=== PATIENT | male | born 1975 | race Caucasian/White ===

== ENCOUNTER 2022-09-03 20:15 | Emergency (ER) | payer BC ==
[~2022-09-03] VITALS: Ht 182.9 cm; Wt 85.7 kg
[~2022-09-03 20:15] MED LIST: ALBU90OI INH; CRUTCH USE; DOXY100 PO; HYDACE5 PO
[2022-09-03 22:30] VITALS: BP 132/95
== END 2022-09-03 22:40 | disposition home or self-care (01) ==
LOC: ER 20:15
DX: R00.2 Palpitations (principal); Z87.891 Personal history of nicotine dependence
CPT/HCPCS: 93005; 93010; 99284-25

== ENCOUNTER 2024-02-05 10:47 | Observation (INO) | payer BC ==
[~2024-02-05] VITALS: Ht 182.9 cm; Wt 84.5 kg
[2024-02-05 12:00] LABS: BASOPHILS ABSOLUTE AUTO 0.06 K/mm3 (0.00-0.23); BASOPHILS PERCENT AUTO 1 % (0-2); EOSINOPHILS ABSOLUTE AUTO 0.12 K/mm3 (0.00-0.68); EOSINOPHILS PERCENT AUTO 1 % (0-6); Hematocrit 45.4 % (37.0-53.0); Hemoglobin 15.7 g/dL (13.5-17.5); IMMATURE GRAN ABSOLUTE AUTO 0.09 K/mm3 (0.00-0.10); IMMATURE GRAN PERCENT AUTO 1 % (0-1); LYMPHOCYTES PERCENT AUTO 13 % (21-46); MONOCYTES ABSOLUTE AUTO 1.49 K/mm3 (0.16-1.47); MONOCYTES PERCENT AUTO 15 % (4-13); Mean Corpuscular HGB 30.7 pg (26.0-34.0); Mean Corpuscular HGB Conc 34.6 g/dL (31.5-36.5); Mean Corpuscular Volume 89 fL (80-100); Mean Platelet Volume 9.1 fL (9.1-12.4); NEUTROPHILS ABSOLUTE AUTO 7.23 K/mm3 (1.96-9.15); NEUTROPHILS PERCENT AUTO 70 % (41-73); Platelet Count 190 K/mm3 (150-400); RDW Coefficient Variation 12.2 % (11.7-14.2); RDW Standard Deviation 40.2 fL (35.1-46.3); Red Blood Cell Count 5.11 M/mm3 (4.30-5.90); White Blood Cell Count 10.29 K/mm3 (4.00-11.30)
[2024-02-05 12:20] LABS: Albumin, Blood 3.2 g/dL (3.4-5.0); Albumin/Globulin Ratio 0.7 (0.8-1.8); Bilirubin, Total 0.6 mg/dL (0.1-1.0); Bun/Creatinine Ratio 13.2 (12.0-20.0); Calcium, Blood 9.2 mg/dL (8.5-10.1); Creatinine, Blood 0.83 mg/dL (0.60-1.20); Globulin, Blood 4.5 g/dL (2.2-4.0); Potassium, Blood 4.2 mmol/L (3.5-5.5); Total Protein, Blood 7.7 g/dL (6.4-8.2)
[2024-02-05] MEDS ORDERED: Ondansetron HCl 2 MG / ML 2ML Vial IV PRN ×2 (15:00→16:45)
[2024-02-05] MEDS ORDERED: Ampicillin Sod/Sulbactam Sod 3 GM in NS 100 ML IV ONE (15:00)
[2024-02-05] MEDS ORDERED: Ondansetron 8 MG SoluTab SL ONE (15:00)
[2024-02-05] MEDS ORDERED: OxyCODONE 5 mg/Acetamin 325 mg TABLET PO ONE (15:00)
[2024-02-05] MEDS ORDERED: Piperacillin/Tazobactam Sod 4.5 GM in NS 100 ML IV ONE (16:20)
[2024-02-05] MEDS ORDERED: HYDROmorphone HCl/Pf 1MG SYR IV PRN (16:40)
[2024-02-05] MEDS ORDERED: Metoclopramide HCl 5MG / ML 2ML Vial IV PRN (16:40)
[2024-02-05] MEDS ORDERED: Lactated Ringer's 1,000 ML IV SCH (16:40)
[2024-02-05] MEDS ORDERED: Acetaminophen 500 MG Tab PO PRN (16:45)
[2024-02-05] MEDS ORDERED: FLU VACC TS2024-25(6MOS UP)/PF 45 MCG/0.5 ML SYRINGE IM SCH (16:45)
[2024-02-05] MEDS ORDERED: Ketorolac Tromethamine 15mg Vial IV PRN (16:50)
[2024-02-05] MEDS ORDERED: Piperacillin/Tazobactam Sod 3.375 GM in NS 100 ML IV SCH (18:00)
[2024-02-05 18:38] LABS: Source, Urine Clean Catch
[2024-02-05 18:40] VITALS: BP 137/91
[2024-02-05 18:59] LABS: Appearance, Urine Clear (Clear); Bilirubin, Urine Neg (Neg); Blood, Urine Neg (Neg); Color, Urine Yellow (P-Yellow); Glucose Qualitative, Urine Neg (Neg); Ketones, Urine 3+ (Neg); Leukocyte Esterase, Urine Neg (Neg); Nitrite, Urine Neg (Neg); Protein, Urine Neg (Neg); Specific Gravity, Urine 1.015 (1.003-1.022); Urobilinogen, Urine NORM (Normal)
--- NOTE | 2024-02-05 19:08 | NUR ---
ADMISSION NOTE PATIENT A/OX4, ABLE TO MAKE NEEDS KNOWN. ARRIVED TO ROOM 332 WITH HIS , DENIS, AT APPROXIMATELY 1820. PATIENT ADMITTED FOR ANORECTAL ABSCESS AND RECTAL PAIN FOR PAST WEEK. STATES HE HAS NOT HAD A REGULAR BOWEL MOVEMENT IN OVER A YEAR AND ALSO STATES RECENT UNINTENTIONAL WEIGHT LOSS OF 8LBS. PATIENT ALSO STATES HE DRINKS 6-8 LIGHT BEERS DAILY, LAST DRINK WAS LASTNIGHT. SKIN INTACT, NO ISSUES NOTED AND ANORECTAL ABSCESS NOT VISIBLE WHEN OBSERVING RECTUM. PATIENT STATES PAIN IS TOLERABLE AT THIS TIME, Q2 HOUR DILAUDID ADMINISTERED IN ED PRIOR TO TRANSFER. PATIENT OREIENTED TO ROOM AND CALL LIGHT SYSTEM, AND HAS NO QUESTIONS UPON ADMISSION. NO OTHER CONCERNS AT THIS TIME.
[2024-02-05] MEDS ORDERED: NS 250 ML IV PRN (19:30)
[2024-02-05 21:44] VITALS: BP 149/88
[2024-02-06] VITALS (15 sets, daily range): BP systolic 114–135; BP diastolic 69–89
[2024-02-06] MEDS ORDERED: OxyCODONE HCL 5 MG TAB PO PRN (00:40)
--- NOTE | 2024-02-06 02:29 | NUR ---
SHIFT SUMMARY NOC PT A/O X 4. PLEASANT AND COOPERATIVE WITH CARE. VSS. ADMIT RIGHT BEFORE SHIFT CHANGE FOR ANORECTAL ABCESS. PT REPORTS GI ISSUES FOR PAST 5 YEARS THAT CULMINATED WITH PAIN THAT HAS INCREASED IN SEVERITY OVER THE PAST WEEK. PT REPORTS LAST FORMED BM WAS 5 DAYS AGO WITH A FEW LIQUIDS IN BETWEEN. PT ALREADY HAD GI CONSULT SCHEDULED FOR 02/16/24 FOR POSSIBLE [address]COPY IN PLACE PRIOR TO ADMIT. PT WBC WNLM BUT PT IS RECEIVING IV ABX ZOSYN Q6H PROPHYLACTICALLY DUE TO ABCESS. PAIN IS BEING MANAGED PER EMAR AND PT HAS ORDER FOR CONTINOUS BIOX. PT CURRENTLY ON CLEAR LIQUID DIET. H&P UNAVAILABLE CURRRENTLY, SO ASSESSMENT AND PLAN UNKNOWN AT THIS TIME. PT CURRENTLY RESTING WITH BED IN LOWEST POSITION, AND CALL LIGHT WITHIN REACH.
[2024-02-06 05:46] LABS: BASOPHILS ABSOLUTE AUTO 0.05 K/mm3 (0.00-0.23); BASOPHILS PERCENT AUTO 1 % (0-2); EOSINOPHILS ABSOLUTE AUTO 0.15 K/mm3 (0.00-0.68); EOSINOPHILS PERCENT AUTO 2 % (0-6); Hematocrit 38.2 % (37.0-53.0); Hemoglobin 13.2 g/dL (13.5-17.5); IMMATURE GRAN ABSOLUTE AUTO 0.07 K/mm3 (0.00-0.10); IMMATURE GRAN PERCENT AUTO 1 % (0-1); LYMPHOCYTES ABSOLUTE AUTO 1.23 K/mm3 (0.84-5.20); LYMPHOCYTES PERCENT AUTO 12 % (21-46); MONOCYTES ABSOLUTE AUTO 1.35 K/mm3 (0.16-1.47); MONOCYTES PERCENT AUTO 14 % (4-13); Mean Corpuscular HGB 30.9 pg (26.0-34.0); Mean Corpuscular HGB Conc 34.6 g/dL (31.5-36.5); Mean Corpuscular Volume 90 fL (80-100); Mean Platelet Volume 9.3 fL (9.1-12.4); NEUTROPHILS ABSOLUTE AUTO 7.03 K/mm3 (1.96-9.15); NEUTROPHILS PERCENT AUTO 71 % (41-73); Platelet Count 182 K/mm3 (150-400); RDW Coefficient Variation 12.3 % (11.7-14.2); RDW Standard Deviation 40.1 fL (35.1-46.3); Red Blood Cell Count 4.27 M/mm3 (4.30-5.90); White Blood Cell Count 9.88 K/mm3 (4.00-11.30)
[2024-02-06 06:11] LABS: Bun/Creatinine Ratio 14.4 (12.0-20.0); Calcium, Blood 8.8 mg/dL (8.5-10.1); Creatinine, Blood 0.9 mg/dL (0.60-1.20); Potassium, Blood 3.7 mmol/L (3.5-5.5)
[2024-02-06] MEDS ORDERED: Rocuronium Bromide 10 MG/ML 5ML Injection IV ONE (09:53)
[2024-02-06] MEDS ORDERED: Ondansetron HCl 2 MG / ML 2ML Vial ONE (09:53)
[2024-02-06] MEDS ORDERED: propofoL 20 ML IV ONE (09:53)
[2024-02-06] MEDS ORDERED: Sugammadex Sodium 200 MG/2ML SDV (100 MG/ML) ONE (09:53)
[2024-02-06] MEDS ORDERED: FentaNYL Citrate 50 MCG/ML 5 ML Injection ONE (09:53)
[2024-02-06] MEDS ORDERED: Dexamethasone Sod Phos 10 MG/ML 1ML VIAL ONE (09:53)
[2024-02-06] MEDS ORDERED: Lactated Ringer's 1,000 ML IV SCH (11:15)
[2024-02-06] MEDS ORDERED: IBUP200 PO (11:50)
[2024-02-06] MEDS ORDERED: Bupivacaine 0.5% HCl 5 MG/ML 30MLVIAL ONE (12:12)
[2024-02-06] MEDS ORDERED: Ketorolac Tromethamine 30mg Vial ONE (12:20)
[2024-02-06] MEDS ORDERED: HYDROcodone 5-APAP 325 TAB PO PRN (13:25)
[2024-02-06] MEDS ORDERED: HYDROmorphone HCl/Pf 1MG SYR IV PRN (13:25)
[2024-02-06] MEDS ORDERED: AMOCLA875 PO (16:40)
[2024-02-06] MEDS ORDERED: Norco 5-325 Ta1 EACH PO (16:42)
--- NOTE | 2024-02-06 17:53 | NUR ---
DISCHARGE NOTE- PT AND SPOUSE WERE GIVEN VERBAL AND WRITTEN DISCHARGE INSTRUCTIONS AND ACKNOWLEDGED UNDERSTANDING OF THEM. IV DC'D PRIOR TO DISCHARGE. PT ESCORTED TO THE ELEVATOR, HE WALKED OUT ON HIS OWN WITH HIS SPOUSE FROM THERE. NO S&S OF DISTRESS AT THE TIME OF DISCHARGE, PT DENIES ANY PAIN AT THE TIME OF DISCHARGE. HARD COPY SCRIPTS PROVIDED TO THE PT AND SPOUSE, IN THEIR POSSETION AT THE TIME OF DISCHARGE.
[2024-02-06] MEDS ORDERED: Amoxicillin/Clavulanate K 875 MG Tab PO SCH (21:00)
== END 2024-02-06 17:49 | disposition home or self-care (01) ==
LOC: ER 10:47 → MEDS 10:48
PROVIDERS: Physician Assistant; Surgery; ADMIT Surgery
PROC: 0D9P0ZZ Drainage of Rectum, Open Approach (ICD-10-PCS; principal; 2024-02-06 11:00)
DX: K61.1 Rectal abscess (principal); Z87.891 Personal history of nicotine dependence
CPT/HCPCS: 36415; 74177; 80048; 80053; 81003; 83690; 85025; 87070; 87075; 87076; 87077; 87185; 87186; 87205; 94762; 96365-59; 96366; 96375; 96376; 99284-25; A9270; G0378; J1100; J1171; J1885; J2405; J2543; J2704; J3010; J7050; J7120; Q9967

== ENCOUNTER 2024-03-11 12:16 | Inpatient (IN) | payer BC ==
[~2024-03-11] VITALS: Ht 182.9 cm; Wt 88.5 kg
[~2024-03-11 12:16] MED LIST changes: +AMOCLA875 PO; +IBUP200 PO; +Norco 5-325 Ta1 EACH PO
[2024-03-11 13:03] LABS: BASOPHILS ABSOLUTE AUTO 0.05 K/mm3 (0.00-0.23); BASOPHILS PERCENT AUTO 0 % (0-2); EOSINOPHILS ABSOLUTE AUTO 0.05 K/mm3 (0.00-0.68); EOSINOPHILS PERCENT AUTO 0 % (0-6); Hematocrit 43.2 % (37.0-53.0); IMMATURE GRAN ABSOLUTE AUTO 0.04 K/mm3 (0.00-0.10); IMMATURE GRAN PERCENT AUTO 0 % (0-1); LYMPHOCYTES ABSOLUTE AUTO 1.41 K/mm3 (0.84-5.20); LYMPHOCYTES PERCENT AUTO 10 % (21-46); MONOCYTES ABSOLUTE AUTO 1.61 K/mm3 (0.16-1.47); MONOCYTES PERCENT AUTO 12 % (4-13); Mean Corpuscular HGB 31.3 pg (26.0-34.0); Mean Corpuscular HGB Conc 34.7 g/dL (31.5-36.5); Mean Corpuscular Volume 90 fL (80-100); Mean Platelet Volume 9.1 fL (9.1-12.4); NEUTROPHILS ABSOLUTE AUTO 10.81 K/mm3 (1.96-9.15); NEUTROPHILS PERCENT AUTO 77 % (41-73); Platelet Count 180 K/mm3 (150-400); RDW Coefficient Variation 13.2 % (11.7-14.2); RDW Standard Deviation 43.7 fL (35.1-46.3); White Blood Cell Count 13.97 K/mm3 (4.00-11.30)
[2024-03-11 13:27] LABS: Albumin, Blood 3.4 g/dL (3.4-5.0); Albumin/Globulin Ratio 0.8 (0.8-1.8); Bun/Creatinine Ratio 10.5 (12.0-20.0); Calcium, Blood 9.1 mg/dL (8.5-10.1); Creatinine, Blood 0.86 mg/dL (0.60-1.20); Globulin, Blood 4.3 g/dL (2.2-4.0); Potassium, Blood 4.1 mmol/L (3.5-5.5); Total Protein, Blood 7.7 g/dL (6.4-8.2)
[2024-03-11] MEDS ORDERED: ONELAX10 MG PR (14:38)
[2024-03-11] MEDS ORDERED: Golytely Solu4000 ML PO (14:38)
[2024-03-11] MEDS ORDERED: Morphine Sulfate 4 MG/1 ML Injection IV ONE (14:50)
[2024-03-11] MEDS ORDERED: MetroNIDAZOLE 500MG/NS 100 ml 100 ML IV ONE (15:45)
[2024-03-11] MEDS ORDERED: Ondansetron HCl 2 MG / ML 2ML Vial IV PRN (16:05)
[2024-03-11] MEDS ORDERED: FLU VACC TS2024-25(6MOS UP)/PF 45 MCG/0.5 ML SYRINGE IM ONE (16:05)
[2024-03-11] MEDS ORDERED: HYDROcodone 5-APAP 325 TAB PO PRN (16:05)
[2024-03-11] MEDS ORDERED: FentaNYL Citrate 50 MCG/ML 2 ML Injection IV PRN ×2 (16:40→20:30)
[2024-03-11] MEDS ORDERED: ChlordiazePOXIDE 25 MG Cap PO PRN (16:45)
[2024-03-11] MEDS ORDERED: LORazepam 2 MG/ML 1ML Injection IV PRN (16:45)
[2024-03-11] MEDS ORDERED: Peg/Electrolytes 4,000 ML BTL PO SCH (17:00)
[2024-03-11] MEDS ORDERED: CefTRIAXone Sodium 1,000 MG in NS 100 ML IV SCH (18:00)
--- NOTE | 2024-03-11 19:06 | NUR ---
REPORT RECEIVED FROM GEOLOGICAL SCOUT, NOC RN WILL TAKE PT.
[2024-03-11 19:20] VITALS: BP 135/73
[2024-03-11] MEDS ORDERED: Lactobacil 2-S.Thermo-Bifido 1 1 Cap PO SCH (21:00)
[2024-03-12] VITALS (10 sets, daily range): BP systolic 96–137; BP diastolic 57–96
[2024-03-12] MEDS ORDERED: MetroNIDAZOLE 500MG/NS 100 ml 100 ML IV SCH
--- NOTE | 2024-03-12 06:19 | NUR ---
PT STABLE THROUGHOUT SHIFT SINCE ADMIT. PT NPO SINCE MIDNIGHT EXCEPT FOR SIPS FOR MEDICATIONS. PT PAIN IS MILDLY CONTROLLED, IV PAIN MEDICATION DOES NOT SUSTAIN RELIEF, PO NORCO IS SEEMS MORE EFFECTIVE BUT DOES NOT PROVIDE A HIGH DEGREE OF RELIEF. PT PAIN 8/10 WHEN MOVING AND 6/10 WHEN LYING STILL. PT C/O PAIN AND PRESSURE TO RECTUM/RIGHT GLUTTEOUS. PT FREQUENTLY MEDIDCATED FOR PAIN, SEE MAR. PT AOX4, INDEPENDENT TO BR, STEADY ON FEET. PT ABLE TO MAKE NEEDS KNOWN AND USES CALL LIGHT APPROPRIATELY.
[2024-03-12] MEDS ORDERED: HYDROcodone 5-APAP 325 TAB PO PRN (07:35)
[2024-03-12] MEDS ORDERED: HYDROmorphone HCl/Pf 1MG SYR IV PRN (09:10)
[2024-03-12] MEDS ORDERED: Lactated Ringer's 1,000 ML IV SCH (09:20)
--- NOTE | 2024-03-12 11:52 | NUR ---
PATIENT MEDICATED c 1MG HYDROMORPHONE AND TRANSPORTED VIA W/C TO MRI BY FLIGHT CONTROL TOWER OPERATORCHRISTINA.
--- NOTE | 2024-03-12 14:35 | NUR ---
History, Chart, Medications and Allergies reviewed before start of procedure. Pre-Op teaching done. Pt verbalizes understanding. Patient confirms NPO status and agrees with scheduled surgery. ALL PT BELONGINGS LEFT IN PT MED FLOOR RM. PT AT BS. PT STATES HE LEFT HOSPITAL MESH UNDERWEAR ON TO KEEP DRESSING ON WOUND IN PLACE.
[2024-03-12] MEDS ORDERED: FentaNYL Citrate 50 MCG/ML 2 ML Injection ONE (14:50)
[2024-03-12] MEDS ORDERED: propofoL 20 ML IV ONE (14:50)
[2024-03-12] MEDS ORDERED: Bupivacaine 0.5% HCl 5 MG/ML 30MLVIAL ONE (14:52)
[2024-03-12] MEDS ORDERED: Ondansetron HCl 2 MG / ML 2ML Vial ONE (15:44)
--- NOTE | 2024-03-12 16:45 | NUR ---
PATIENT RETURNED FROM SURGERY. A&Ox4. PLEASANT AND COOPERATIVE. PAIN 04/13. GAUZE PACKED IN INTERGLUTEAL CLEFT WITH MINIMAL AMOUNT SEROSAGUINEOUS DISCHARGE. PATIENT REPORTING HE'D LIKE TO GO HOME. PER DR CARRERA: FROM SURGICAL STANDPOINT, OKAY TO DC. CALL TO DR. CHAVEZ WHO WILL CONTACT SURGEON R/T F/U CARE AND LIKELY PUT IN DC ORDERS.
[2024-03-12] MEDS ORDERED: VISBIOME 112.51 EACH PO (16:57)
--- NOTE | 2024-03-12 19:50 | NUR ---
DISCHARGE SUMMARY: A&Ox4. PLEASANT AND COOPERATIVE WITH CARE. CALLS APPROPRIATELY AND IS ABLE TO ADVOCATE NEEDS EFFECTIVELY. AMBULATES INDEPENDENTLY. CONTINENT OF BOWEL AND BLADDER. MEDS WHOLE WITH FLUIDS. NO TELE. C/O SIGNIFICANT PAIN RELIEVED WITH CHANGE FROM FENTANYL TO DILAUDID. PATIENT CALLED STATING ABSCESS HAD RUPTURED; DRAINING RUST-COLORED DRAINAGE. DR. CASTANEDA NOTIFIED PROCEEDED WITH PROCEDURE. PLACEMENT OF CORONA DRAIN x2. AFTERARE INSTRCUTIONS AND F/U PROVIDED. MED REC FAXED TO [facility]. HARD COPY FOR NORCO WRITTEN BY DR. CHAVEZ GIVEN TO PT'S , MARIAN. HARD COPY FOR NORCO WRITTEN BY DR CASTANEDA LINED OUT AND PLACED IN CHART DUE TO DUPLICATION AND NOT NEEDED. PATIENT LEFT FLOOR WTIH ALL BELONGINSG AND DISCHARGE PACKET. TRANSPORTATION PROVIDED BY .
[2024-03-12] MEDS ORDERED: Amoxicillin/Clavulanate K 875 MG Tab PO SCH (21:00)
== END 2024-03-12 17:52 | disposition home or self-care (01) | DRG 854 ==
LOC: ER 12:16 → MEDS 18:44
PROVIDERS: Emergency Medicine; Surgery; ADMIT Internal Medicine
PROC: 3E03329 Introduction of Other Anti-infective into Peripheral Vein, Percutaneous Approach (ICD-10-PCS; 2024-03-12)
PROC: 0D9Q0ZZ Drainage of Anus, Open Approach (ICD-10-PCS; principal; 2024-03-12 14:00)
DX: A41.9 Sepsis, unspecified organism (principal); K61.2 Anorectal abscess; K21.9 Gastro-esophageal reflux disease without esophagitis; F10.20 Alcohol dependence, uncomplicated; Z79.891 Long term (current) use of opiate analgesic; Z79.899 Other long term (current) drug therapy
CPT/HCPCS: 36415; 72193; 72197; 80053; 83605; 85025; 96374-59; 99285-25; A9270; A9579; J0696; J1171; J2270; J2405; J2704; J3010; J7120; Q9967

== ENCOUNTER 2024-08-06 11:41 | Day surgery (SDC) | payer BC ==
[~2024-08-06] VITALS: Ht 182.9 cm; Wt 86.7 kg
[~2024-08-06 11:41] MED LIST changes: +Dexamethasone Sod Phos 10 MG/ML 1ML VIAL ONE; +FentaNYL Citrate 50 MCG/ML 2 ML Injection ONE; +Golytely Solu4000 ML PO; +Ketorolac Tromethamine 30mg Vial ONE; +Lactated Ringer's 1,000 ML IV ONE; +Lidocaine HCl 2% 20 ML MDV ONE; +Midazolam HCl 1MG / ML 2ML Vial ONE; +ONELAX10 MG PR; +Ondansetron HCl 2 MG / ML 2ML Vial ONE; +Rocuronium Bromide 10 MG/ML 5ML Injection IV ONE; +Sugammadex Sodium 200 MG/2ML SDV (100 MG/ML) ONE; +VISBIOME 112.51 EACH PO; +propofoL 20 ML IV ONE; +propofoL 50 ML IV ONE
[2024-08-06] MEDS ORDERED: ACETAMINOPHEN500 M2 (13:41)
[2024-08-06] MEDS ORDERED: Lactated Ringer's 1,000 ML IV ONE (14:28)
[2024-08-06] MEDS ORDERED: Midazolam HCL 1 MG/ML 5MLVIAL ONE (14:37)
[2024-08-06] MEDS ORDERED: propofoL 50 ML IV ONE (15:06)
[2024-08-06 16:09] VITALS: BP 130/95
== END 2024-08-06 15:55 | disposition home or self-care (01) ==
LOC: ORSCSDS 11:41
PROVIDERS: Internal Medicine Gastroenterology
PROC: 0DJD8ZZ Inspection of Lower Intestinal Tract, Via Natural or Artificial Opening Endoscopic (ICD-10-PCS; principal; 2024-08-06 13:15)
DX: K61.1 Rectal abscess (principal); Z87.891 Personal history of nicotine dependence
CPT/HCPCS: J1100; J1885; J2250; J2405; J2704; J3010; J7120

== ENCOUNTER 2024-10-12 09:06 | Emergency (ER) | payer BC ==
[~2024-10-12] VITALS: Ht 182.9 cm; Wt 88.5 kg
[~2024-10-12 09:06] MED LIST changes: +ACETAMINOPHEN500 M2; -Dexamethasone Sod Phos 10 MG/ML 1ML VIAL ONE; -FentaNYL Citrate 50 MCG/ML 2 ML Injection ONE; -Ketorolac Tromethamine 30mg Vial ONE; -Lactated Ringer's 1,000 ML IV ONE; -Lidocaine HCl 2% 20 ML MDV ONE; -Midazolam HCl 1MG / ML 2ML Vial ONE; -Ondansetron HCl 2 MG / ML 2ML Vial ONE; -Rocuronium Bromide 10 MG/ML 5ML Injection IV ONE; -Sugammadex Sodium 200 MG/2ML SDV (100 MG/ML) ONE; -propofoL 20 ML IV ONE; -propofoL 50 ML IV ONE
[2024-10-12 09:34] LABS: BASOPHILS ABSOLUTE AUTO 0.03 K/mm3 (0.00-0.23); BASOPHILS PERCENT AUTO 1 % (0-2); EOSINOPHILS ABSOLUTE AUTO 0.13 K/mm3 (0.00-0.68); EOSINOPHILS PERCENT AUTO 3 % (0-6); Hematocrit 45.1 % (37.0-53.0); Hemoglobin 15.7 g/dL (13.5-17.5); IMMATURE GRAN ABSOLUTE AUTO 0.02 K/mm3 (0.00-0.10); IMMATURE GRAN PERCENT AUTO 0 % (0-1); LYMPHOCYTES ABSOLUTE AUTO 1.70 K/mm3 (0.84-5.20); LYMPHOCYTES PERCENT AUTO 36 % (21-46); MONOCYTES ABSOLUTE AUTO 0.66 K/mm3 (0.16-1.47); MONOCYTES PERCENT AUTO 14 % (4-13); Mean Corpuscular HGB Conc 34.8 g/dL (31.5-36.5); Mean Corpuscular Volume 90 fL (80-100); NEUTROPHILS ABSOLUTE AUTO 2.14 K/mm3 (1.96-9.15); NEUTROPHILS PERCENT AUTO 46 % (41-73); NRBC ABSOLUTE 0.00 K/mm3 (0.00-0.02); NRBC Auto 0.0 /100 WBC (0.0-0.2); Platelet Count 166 K/mm3 (150-400); RDW Coefficient Variation 12.7 % (11.7-14.2); RDW Standard Deviation 42.0 fL (35.1-46.3)
[2024-10-12 09:56] LABS: Alanine Aminotransfer (ALT/SGP 41.0 U/L (12-78); Albumin, Blood 3.6 g/dL (3.4-5.0); Albumin/Globulin Ratio 0.9 (0.8-1.8); Anion Gap 8.0 mmol/L (3-11); Aspartate Aminotrans (AST/SGOT 27.0 U/L (12-37); Bilirubin, Total 0.3 mg/dL (0.1-1.0); Blood Urea Nitrogen 12.0 mg/dL (8-24); CO2, Blood 25.0 mmol/L (21-32); Calcium, Blood 8.5 mg/dL (8.5-10.1); Chloride, Blood 110.0 mmol/L (98-108); Creatinine, Blood 0.85 mg/dL (0.60-1.20); Globulin, Blood 3.9 g/dL (2.2-4.0); Glucose, Blood 106.0 mg/dL (70-99); Potassium, Blood 4.0 mmol/L (3.5-5.5); Sodium, Blood 139.0 mmol/L (136-145); Total Protein, Blood 7.5 g/dL (6.4-8.2)
[2024-10-12 10:20] VITALS: BP 157/106
== END 2024-10-12 12:03 | disposition home or self-care (01) ==
LOC: ER 09:06
PROVIDERS: Emergency Medicine
DX: R53.1 Weakness (principal); R53.83 Other fatigue; R10.2 Pelvic and perineal pain; Z48.817 Encounter for surgical aftercare following surgery on the skin and subcutaneous tissue; Z87.891 Personal history of nicotine dependence
CPT/HCPCS: 71046; 72193; 80053; 85025; 93005; 93010; 99285-25; Q9967